=== PATIENT | male | born 2000 | race Hispanic/Latino ===

== ENCOUNTER 2019-07-14 14:48 | Emergency (ER) | payer MEDICAID | END 2019-07-14 15:33 | disposition home or self-care (01) | LOC: EDH 14:48 | DX: J06.9 Acute upper respiratory infection, unspecified (principal) | CPT/HCPCS: 99281 ==

== ENCOUNTER 2022-09-10 09:26 | Emergency (ER) | payer MEDICAID ==
[~2022-09-10] VITALS: Ht 170.2 cm; Wt 72.6 kg
[2022-09-10] MEDS ORDERED: DEXAMETHASONE SOD PHOSPHATE 4 MG/ML 1ML VIAL IM STA (09:36)
[2022-09-10] MEDS ORDERED: AMOX500C2 PO (11:08)
[2022-09-10 11:46] VITALS: BP 122/76
== END 2022-09-10 11:47 | disposition home or self-care (01) ==
LOC: EDH 09:26
DX: J32.2 Chronic ethmoidal sinusitis (principal); Z20.822 Contact with and (suspected) exposure to COVID-19; F17.200 Nicotine dependence, unspecified, uncomplicated
CPT/HCPCS: 99283; 87635; 87880; 87804 ×2; 96372; J1100; C9803

== ENCOUNTER 2023-10-19 17:13 | Emergency (ER) | payer MEDICAID, OTHER ==
[~2023-10-19] VITALS: Ht 165.1 cm; Wt 86.2 kg
[~2023-10-19 17:13] MED LIST: AMOX500C2 PO
[2023-10-19 18:40] LABS: BASOPHILS # (AUTO) 0.04 K/uL (0.00-0.20); BASOPHILS % (AUTO) 0.4 % (0.0-5.0); EOSINOPHILS # (AUTO) 0.04 K/uL (0.00-0.70); EOSINOPHILS % (AUTO) 0.4 % (0.0-8.0); HEMATOCRIT 45.4 % (42-54); IMMATURE GRANULOCYTE ABSOLUTE 0.03 K/uL (0-1); LYMPHOCYTES # (AUTO) 1.5 K/uL (1.0-4.8); LYMPHOCYTES % (AUTO) 15.2 % (21.0-51.0); MEAN CORPUSCULAR HEMOGLOBIN 30.7 pg (27.0-33.0); MEAN CORPUSCULAR HGB CONC 34.6 g/dL (32.0-36.0); MEAN CORPUSCULAR VOLUME 88.8 fL (79-99); MONOCYTES # (AUTO) 0.7 K/uL (0.1-1.0); MONOCYTES % (AUTO) 6.8 % (3.0-13.0); NEUTROPHILS # (AUTO) 7.5 K/uL (1.8-7.7); NEUTROPHILS % (AUTO) 76.9 % (40.0-77.0); PLATELET COUNT (AUTO) 233 K/uL (130-400); RED BLOOD CELL COUNT(AUTO) 5.11 MIL/uL (4.50-6.20); RED CELL DISTRIBUTION WIDTH 12.8 % (11.0-15.5); WHITE BLOOD COUNT (AUTO) 9.7 K/uL (4.8-10.8)
[2023-10-19 18:46] LABS: APPEARANCE,URINE CLEAR (CLEAR); BILIRUBIN,URINE NEGATIVE (NEGATIVE); COLOR,URINE YELLOW (YELLOW); GLUCOSE, URINE (UA) NEGATIVE (NEGATIVE); KETONES,URINE 40 mg/dL (NEGATIVE); LEUKOCYTE ESTERASE ,URINE NEGATIVE Leu/uL (NEGATIVE); NITRATE,URINE NEGATIVE (NEGATIVE); OCCULT BLOOD,URINE SMALL (NEGATIVE); PH,URINE 5.5 (5.0-8.0); PROTEIN,URINE 10 mg/dL (NEGATIVE)
[2023-10-19 18:47] LABS: ADD UA MICROSCOPIC YES
[2023-10-19 18:48] LABS: CARBON DIOXIDE 26 mmol/L (21-32); CHLORIDE 102 mmol/L (101-111); CREATININE 1.1 mg/dL (0.5-1.3); GLOMERULAR FILTR. RATE CALC 96 mL/min (>90); GLUCOSE,RANDOM 77 mg/dL (70-105); POTASSIUM 3.6 mmol/L (3.5-5.1); SODIUM SERUM 138 mmol/L (136-145); UREA NITROGEN, BLOOD 13 mg/dL (7-18)
[2023-10-19 18:49] LABS: MUCUS,URINE RARE LPF (None Seen)
[2023-10-19 18:51] LABS: AMPHET/METH SCREEN,URINE NEGATIVE (NEGATIVE); BARBITURATE SCREEN, URINE NEGATIVE (NEGATIVE); BENZODIAZEPINES SCREEN,URINE NEGATIVE (NEGATIVE); CANNABINOID SCREEN,URINE NEGATIVE (NEGATIVE); COCAINE SCREEN,URINE NEGATIVE (NEGATIVE); OPIATE SCREEN,URINE NEGATIVE (NEGATIVE); PHENCYCLIDINE SCREEN,URINE NEGATIVE (NEGATIVE)
[2023-10-19 18:55] LABS: ALANINE AMINOTRANSFERASE 35 U/L (12-78); ALBUMIN 4.4 g/dL (3.5-5.0); ALCOHOL, BLOOD < 3 mg/dL (0-10); ASPARTATE AMINOTRANSFERASE 30 U/L (10-37); BILIRUBIN,TOTAL 0.3 mg/dL (0.2-1.0); SALICYLATE 6.8 mg/dL (2.8-20.0); TOTAL PROTEIN, SERUM 8.1 g/dL (6.0-8.3)
[2023-10-19 19:02] LABS: ACETAMINOPHEN < 1 mcg/mL (10-29)
[2023-10-19 19:20] VITALS: BP 122/68; PULSE 94; RESP 16; O2SAT 99
[2023-10-19 19:29] LABS: SARS-CoV-2, RNA, NAAT NEGATIVE SARS CoV-2 (NEGATIVE)
[2023-10-19 19:34] LABS: INFLUENZA TYPE A Negative For Type A (NEGATIVE); INFLUENZA TYPE B Negative For Type B (NEGATIVE)
[2023-10-19] MEDS ORDERED: HALOPERIDOL INJ 5 MG/ML VIAL IM SCH (22:00)
[2023-10-19] MEDS ORDERED: DiphenhydrAMINE HCL 50 MG/ML VIAL IM ONE (22:00)
[2023-10-19] MEDS ORDERED: LORAZEPAM 2 MG/ML 1 ML VIAL IM ONE (22:00)
== END 2023-10-19 22:20 | disposition left against medical advice (07) ==
LOC: EDH 17:13
DX: R45.851 Suicidal ideations (principal); F20.9 Schizophrenia, unspecified; F17.200 Nicotine dependence, unspecified, uncomplicated; Z20.822 Contact with and (suspected) exposure to COVID-19; Z98.890 Other specified postprocedural states; Z79.899 Other long term (current) drug therapy
CPT/HCPCS: 99283; 87635; 80053; 80305; 85025; 87804 ×2; 81001; 36415; G0481

== ENCOUNTER 2024-04-29 11:23 | Emergency (ER) | payer MEDICAID ==
[~2024-04-29] VITALS: Ht 167.6 cm; Wt 79.4 kg
[2024-04-29 11:26] VITALS: BP 135/85; PULSE 120; RESP 18; TEMP 98.4
--- NOTE | 2024-04-29 11:35 | ERN ---
ED Note History of Present Illness Stated Complaint: SUICIDAL Chief Complaint: Suicidal Ideation Time Seen by MD: 11:27 Dictation: PATIENT IS A 23-YEAR-OLD MALE COMING IN EMS FROM [facility] WITH HIS MOTHER. PATIENT IS NOT ANSWERING ANY QUESTIONS, MOTHER STATES HE HAS BEEN SCHIZOPHRENIC HEARING VOICES DEPRESSED AND VOICING SUICIDAL IDEATION FOR THE LAST HOUR TWO. SHE STATES HE DOES NOT HAVE A PLAN. HE DOES HAVE A HISTORY OF SCHIZOPHRENIA BIPOLAR DEPRESSION AND SUICIDALITY, HAS NOT TAKEN HIS MEDICATIONS IN THREE MONTHS. Allergies: Coded Allergies: No Known Allergies (Unverified Allergy, Unknown, 09/10/22) Home Meds Active Scripts Amoxicillin (Amoxicillin) 500 Mg Capsule, 500 MG PO TID for 7 Days, #21 CAP Prov:BIGG ROA MD 09/10/22 Past Medical History Past Medical History: Anxiety, Bipolar Additional Past Medical Hx: SCHIZOPHRENIA Surgical History: Other PSYCH History: bipolar, depression, schizophrenia Family History: Negative Social History: Smokers, Lives with family RN Note Reviewed/Agreed w/PFSH: Yes Review of System Dictation CONSTITUTIONAL: NEGATIVE EXCEPT FOR HPI HEAD/FACE: NEGATIVE EXCEPT FOR HPI EENT: NEGATIVE EXCEPT FOR HPI RESPIRATORY: NEGATIVE EXCEPT FOR HPI GASTROINTESTINAL/ABDOMINAL: NEGATIVE EXCEPT FOR HPI GENITOURINARY: NEGATIVE EXCEPT FOR HPI MUSCULOSKELETAL: NEGATIVE EXCEPT FOR HPI INTEGUMENTARY: NEGATIVE EXCEPT FOR HPI NEUROLOGICAL/PSYCH: NEGATIVE EXCEPT FOR HPI DEPRESSED WITH SUICIDAL IDEATION, AUDITORY HALLUCINATIONS NOT ANSWERING QUESTION HEMATOLOGIC/LYMPHATIC: NEGATIVE EXCEPT FOR HPI ALL SYSTEMS NEGATIVE, EXCEPT NOTED ABOVE. 13 POINT REVIEW OF SYSTEMS ASSESSED AND ALL NEGATIVE EXCEPT FOR ABOVE. Initial Vital Sign VS Vital Signs Date Time Temp Pulse Resp B/P (MAP) Pulse Ox O2 Delivery O2 Flow Rate FiO2 04/29/24 11:26 98.4 120 18 135/85 98 Room Air 0 Physical Exam Dictation VITAL SIGNS REVIEWED PLZ NOTE THAT MOTHER IS A CHIEF HISTORIAN. GENERAL APPEARANCE: ALERT, ORIENTED X, NO ACUTE DISTRESS, WELL DEVELOPED, NOURIS HED. PATIENT IS HAVING AUDITORY HALLUCINATIONS DISTRACTED IN HIS NOT ANSWERING QUESTIONS. HEAD AND FACE: NON-TRAUMATIC. EYES: PERRL, PINK CONJUNCTIVAS, EYELID NO TRAUMA, ANTERIOR CHAMBER WITH ARCUS SENILIS. EARS: PINNAS INTACT AND NO SIGNS OF TRAUMA OR ERYTHEMA EAR CANALS CLEAR AND NO DISCHARGE TM NO ERYTHEMA NOSE: NO DISCHARGE, NO BLEEDING. OROPHARYNX: MOUTH NORMAL, TONGUE PINK, PHARYNX CLEAR,NO ERYTHEMA, TONSILS NO EXUDATES, NO ABSCESSES NOTED, MUCOUS MEMBRANE MOIST NECK: SUPPLE, NON-TENDER, NO THYROMEGALY, NO MASSES, NO JVD, NO BRUITS BREAST:DEFERRED CHEST:NO TENDERNESS, NO CREPITUS, NO PARADOXICAL MOVEMENT, NO RETRACTIONS LUNGS:CLEAR, WELL-VENTILATED, SYMMETRIC, NO RALES, NO WHEEZING, NO RHONCHI, NO STRIDOR, GOOD BREATH SOUNDS BILATERALLY HEART: REGULAR RATE, REGULAR RHYTHM, NO MURMUR, NO GALLOPS VASCULAR: NO PERIPHERAL EDEMA, ABDOMEN: SOFT, POSITIVE BOWEL SOUNDS, NONDISTENDED, NO GUARDING, NONTENDER, NO REBOUND, NO MASSES NO HEPATOMEGALY, NO SPLENOMEGALY, NO CALDERON'S SIGN, NO HERNIAS. RECTAL: DEFERRED GENITAL, MOTOR FUNCTION INTACT, SENSORY FUNCTION INTACT WE WILL NOT ANSWER SIMPLE QUESTIONS, HE DOES STATE HIS NAME IS ARRIVAL MUSCULOSKELETAL: NECK NONTENDER, FULL RANGE OF MOTION, BACK NONTENDER, FULL RANGE OF MOTION, EXTREMITIES: NONTENDER, FULL RANGE OF MOTION SKIN: COLOR PINK, DRY, NO TURGOR, NO RASH, NO LACERATIONS, NO ABRASIONS, NO CONTUSIONS. LYMPHATIC: DEFERRED Results (Laboratory/Radiology) Laboratory/Radiology Laboratory Tests Test 04/29/24 11:49 04/29/24 14:45 White Blood Count 11.7 K/uL (4.8-10.8) H Red Blood Count 5.09 MIL/uL (4.50-6.20) Hemoglobin 15.7 g/dL (14.0-18.0) Hematocrit 44.8 % (42-54) Mean Corpuscular Volume 88.0 fL (79-99) Mean Corpuscular Hemoglobin 30.8 pg (27.0-33.0) Mean Corpuscular Hemoglobin Concent 35.0 g/dL (32.0-36.0) Red Cell Distribution Width 13.0 % (11.0-15.5) Platelet Count 231 K/uL (130-400) Mean Platelet Volume 10.2 fL (7.5-10.5) Immature Granulocyte % (Auto) 0.4 % (0-1) Neutrophils (%) (Auto) 78.0 % (40.0-77.0) H Lymphocytes (%) (Auto) 12.4 % (21.0-51.0) L Monocytes (%) (Auto) 8.8 % (3.0-13.0) Eosinophils (%) (Auto) 0.1 % (0.0-8.0) Basophils (%) (Auto) 0.3 % (0.0-5.0) Neutrophils # (Auto) 9.1 K/uL (1.8-7.7) H Lymphocytes # (Auto) 1.5 K/uL (1.0-4.8) Monocytes # (Auto) 1.0 K/uL (0.1-1.0) Eosinophils # (Auto) 0.01 K/uL (0.00-0.70) Basophils # (Auto) 0.03 K/uL (0.00-0.20) Absolute Immature Granulocyte (auto 0.05 K/uL (0-1) Nucleated Red Blood Cells 0.0 % (0.0-0.19) Sodium Level 137 mmol/L (136-145) Potassium Level 3.5 mmol/L (3.5-5.1) Chloride Level 101 mmol/L (101-111) Carbon Dioxide Level 25 mmol/L (21-32) Blood Urea Nitrogen 11 mg/dL (7-18) Creatinine 1.2 mg/dL (0.5-1.3) Glomerular Filtration Rate Calc 87 mL/min (>90) Random Glucose 107 mg/dL (70-105) H Total Calcium 9.6 mg/dL (8.5-10.1) Total Creatine Kinase 1407 U/L (21-232) *H Salicylates Level 3.2 mg/dL (2.8-20.0) # Acetaminophen Level < 1 mcg/mL (10-29) L Serum Alcohol < 3 mg/dL (0-10) Urine Color YELLOW (YELLOW) Urine Appearance CLEAR (CLEAR) Urine pH 6.5 (5.0-8.0) Urine Specific Sumner 1.021 (1.001-1.031) Urine Protein 10 mg/dL (NEGATIVE) H Urine Glucose (UA) NEGATIVE mg/dL (NEGATIVE) Urine Ketones >=80 mg/dL (NEGATIVE) Urine Occult Blood +- (TRACE) (NEGATIVE) H Urine Nitrate NEGATIVE (NEGATIVE) Urine Bilirubin NEGATIVE mg/dL (NEGATIVE) Urine Urobilinogen 0.2 mg/dL (0.2-1.0) Urine Leukocyte Esterase NEGATIVE Leonid/uL Urine RBC 6-10 /HPF (0-1) H Urine WBC 0-1 /HPF (0-1) Urine Squamous Epithelial Cells RARE /HPF (0-2) Urine Bacteria RARE /HPF (None Seen) Urine Opiates Screen NEGATIVE (NEGATIVE) Urine Barbiturates Screen NEGATIVE (NEGATIVE) Urine Phencyclidine Screen NEGATIVE (NEGATIVE) Urine Amphetamines Screen NEGATIVE (NEGATIVE) Urine Benzodiazepines Screen NEGATIVE (NEGATIVE) Urine Cocaine Screen NEGATIVE (NEGATIVE) Urine Marijuana (THC) Screen NEGATIVE (NEGATIVE) Labs Reviewed?: Yes ED Course ED Course Orders Procedure Category Date Status Time Drug Screen Urine LAB 04/29/24 Complete 11:30 Cbc With Differential LAB 04/29/24 Complete 11:30 Alcohol, Blood LAB 04/29/24 Complete 11:30 Salicylate LAB 04/29/24 Complete 11:30 Acetaminophen LAB 04/29/24 Complete 11:30 Urinalysis Profile LAB 04/29/24 Complete 11:30 Creatine Kinase, Total LAB 04/29/24 Complete 11:30 Basic Metabolic Panel LAB 04/29/24 Complete 11:30 Suicide Precautions CPOE 04/29/24 Transmitted 11:30 0.9%Nacl 1000ml (Ns PHA 04/29/24 Complete 1000ml) 13:00 Creatine Kinase, Total LAB 04/29/24 Logged 15:56 Current Medications Medications (Trade) Dose Ordered Sig/Ameya Route PRN Reason Start Time Stop Time Status Last Admin Dose Admin Sodium Chloride 2,382 ml @ 794 mls/hr ONCE ONCE IV 04/29/24 13:00 04/29/24 15:59 DC 04/29/24 13:41 Vital Signs Date Time Temp Pulse Resp B/P (MAP) Pulse Ox O2 Delivery O2 Flow Rate FiO2 04/29/24 11:26 98.4 120 18 135/85 98 Room Air 0 Medical Decision Making MDM MEDICAL DISCHARGE MAKING FOR PSYCHIATRIC CLEARANCE. PATIENT WAS TREATED FOR ELEVATED CK LEVEL WITH FLUIDS. RECEIVED CALL FROM CHARGE NURSE THAT IS SAID PATIENT HAD PULLED HIS IV IN HIS MOTHER LEFT WITHOUT SIGNING AGAINST MEDICAL ADVICE. HE WAS IN CUSTODY OF HIS MOTHER. DX & DISP Disposition: AMA Departure Impression: Primary Impression: Suicidal ideation Additional Impressions: Acute schizophrenia episode, Auditory hallucinations, Dehydration, Medical non-compliance, Elevated CK Condition: Stable Referrals: NONE (PCP) Time of Disposition: 16:20 I have reviewed the case, and I agree with, Diagnosis and Plan BERNARDO KLEIN SENIOR NET ARCHITECT Apr 29, 2024 11:35
[2024-04-29 11:57] LABS: BASOPHILS # (AUTO) 0.03 K/uL (0.00-0.20); BASOPHILS % (AUTO) 0.3 % (0.0-5.0); EOSINOPHILS # (AUTO) 0.01 K/uL (0.00-0.70); EOSINOPHILS % (AUTO) 0.1 % (0.0-8.0); HEMATOCRIT 44.8 % (42-54); IMMATURE GRANULOCYTE ABSOLUTE 0.05 K/uL (0-1); LYMPHOCYTES # (AUTO) 1.5 K/uL (1.0-4.8); LYMPHOCYTES % (AUTO) 12.4 % (21.0-51.0); MEAN CORPUSCULAR HEMOGLOBIN 30.8 pg (27.0-33.0); MONOCYTES % (AUTO) 8.8 % (3.0-13.0); NEUTROPHILS # (AUTO) 9.1 K/uL (1.8-7.7); PLATELET COUNT (AUTO) 231 K/uL (130-400); RED BLOOD CELL COUNT(AUTO) 5.09 MIL/uL (4.50-6.20); WHITE BLOOD COUNT (AUTO) 11.7 K/uL (4.8-10.8)
[2024-04-29 12:16] LABS: CARBON DIOXIDE 25 mmol/L (21-32); CHLORIDE 101 mmol/L (101-111); CREATININE 1.2 mg/dL (0.5-1.3); GLOMERULAR FILTR. RATE CALC 87 mL/min (>90); GLUCOSE,RANDOM 107 mg/dL (70-105); POTASSIUM 3.5 mmol/L (3.5-5.1); SODIUM SERUM 137 mmol/L (136-145); UREA NITROGEN, BLOOD 11 mg/dL (7-18)
[2024-04-29 12:40] LABS: ALCOHOL, BLOOD < 3 mg/dL (0-10); SALICYLATE 3.2 mg/dL (2.8-20.0)
[2024-04-29 12:51] LABS: CREATINE KINASE, TOTAL 1407 U/L (21-232)
[2024-04-29 12:58] LABS: ACETAMINOPHEN < 1 mcg/mL (10-29)
[2024-04-29] MEDS: 0.9%NACL 1000ML 2,382 ML IV ONE (13:41)
[2024-04-29 14:53] LABS: APPEARANCE,URINE CLEAR (CLEAR); BILIRUBIN,URINE NEGATIVE (NEGATIVE); COLOR,URINE YELLOW (YELLOW); GLUCOSE, URINE (UA) NEGATIVE (NEGATIVE); KETONES,URINE >=80 mg/dL (NEGATIVE); LEUKOCYTE ESTERASE ,URINE NEGATIVE Leu/uL (NEGATIVE); NITRATE,URINE NEGATIVE (NEGATIVE); PH,URINE 6.5 (5.0-8.0); PROTEIN,URINE 10 mg/dL (NEGATIVE); UROBILINOGEN,URINE 0.2 mg/dL (0.2-1.0)
[2024-04-29 14:59] LABS: AMPHET/METH SCREEN,URINE NEGATIVE (NEGATIVE); BARBITURATE SCREEN, URINE NEGATIVE (NEGATIVE); BENZODIAZEPINES SCREEN,URINE NEGATIVE (NEGATIVE); CANNABINOID SCREEN,URINE NEGATIVE (NEGATIVE); COCAINE SCREEN,URINE NEGATIVE (NEGATIVE); OPIATE SCREEN,URINE NEGATIVE (NEGATIVE); PHENCYCLIDINE SCREEN,URINE NEGATIVE (NEGATIVE)
[2024-04-29 15:02] LABS: ADD UA MICROSCOPIC YES
[2024-04-29 15:07] LABS: BACTERIA,URINE RARE /HPF (None Seen); MUCUS,URINE FEW LPF (None Seen); SQUAMOUS EPITHELIAL CELL,UR RARE /HPF (0-2); WBC,URINE 0-1 /HPF (0-1)
--- NOTE | 2024-04-29 16:48 | NUR ---
PT LEFT AMA FORM ER DID NOT WANT TO SIGN THE AMA FORM. RAMIRO Jay WAS CALLED AND NOTIFIED FOR DUE TO SUICIDAL AND BIPOLAR OF HIS MEDS. SPOKE WITH [facility] ADMINISTRATIVE ASSISTANT PAMELLA #[id number].
== END 2024-04-29 16:51 | disposition left against medical advice (07) ==
LOC: EDH 11:23
DX: R45.851 Suicidal ideations (principal); F41.9 Anxiety disorder, unspecified; E86.0 Dehydration; F17.200 Nicotine dependence, unspecified, uncomplicated; Z91.199 Patient's noncompliance with other medical treatment and regimen due to unspecified reason
CPT/HCPCS: 99283; 96360; 96361; 82550; 80048; 80305; 85025; 36415; 81001; G0481; J7030